=== PATIENT | male | born 1995 | race African-American/Black ===

== ENCOUNTER 2017-10-13 13:32 | Outpatient (CLI) ==
[2015-01-07 22:02] VITALS: BMI 31.8
== END 2017-10-13 13:33 | disposition home or self-care (01) ==
LOC: LAB 13:32
PROVIDERS: ATTEND Nurse Practitioner Family
DX: R80.9 Proteinuria, unspecified (principal); R30.9 Painful micturition, unspecified; R31.9 Hematuria, unspecified
CPT/HCPCS: 81001

== ENCOUNTER 2018-03-18 09:35 | Emergency (ER) ==
[2018-03-18 09:45] VITALS: BP 115/72; TEMP 96.8; BMI 28.5
[2018-03-18] MEDS ORDERED: TORADOL IVP STA (10:07)
[2018-03-18] MEDS ORDERED: LACTATED RINGERS 1,000 ML IV STA (10:07)
--- NOTE | 2018-03-18 10:11 | ED.PDOC ---
General ED Provider: Dr. CONI GUTIERREZ Chief Complaint: Nausea/Vomiting Stated Complaint: Patient states that he has not been drinking much. Now has a severe right frontal headache. Had similar symtoms when he was a teenager and had to have some fluids. Time Seen by Physician: 10:06 Mode of Arrival: Walk-In Information Source: Patient Exam Limitations: No limitations [facility] Nursing and Triage Documentation Reviewed and Agree: Yes Does patient meet sepsis criteria?: No System Inflammatory Response Syndrome: Not Applicable Sepsis Protocol: For patient's 13 years and over: Temp is 96.8 and below OR 101 and greater Pulse >90 BPM Resp >20/minute Acutely Altered Mental Status Are patient's symptoms suggestive of a new infection, such as: -Pneumonia -Skin, Soft Tissue -Endocarditis -UTI -Bone, Joint Infection -Implantable Device -Acute Abdominal Infection -Wound Infection -Meningitis -Blood Stream Catheter Infection -Unknown Neurological Complaint Exam - Headache Complaint/Exam Onset: Gradual Duration: 1 day Symptoms Are: Still present Timing: Constant Worst Headache Ever: No Initial Severity: Moderate Current Severity: Severe Location: Right, Frontal Character: Reports: Dull, Throbbing Aggravating: Denies: Position change, Bright lights Alleviating: Reports: None Associated Signs and Symptoms: Reports: Nausea. Denies: Dizziness, Seizure, Vomiting, Sinus pressure, Fever, Neck pain, Neck stiffness, Decreased LOC, Visual changes Related History: Reports: Similar episode (when he was a teenager ) Related Surgical History: Reports: None SAH Risk Factors: Reports: None Meningitis Risk Factors: Reports: None SDH Risk Factors: Reports: None Temporal Arteritis Risk Factors: Reports: None Normal Head CT Within Last 12 Months: No Fundoscopic Exam: Present: Normal Findings Papilledema Present: No Temporal Artery Tenderness: Present: None Sinus Tenderness: Present: None TMJ Tenderness: Present: None Glascow Coma Scale (see protocol): 15 Meningeal Signs Positive: No Pain on Passive Flexion-Positive Kernig's: No ROM Limited In: No Limitiations Focal Weakness: Present: None Focal Sensory Loss: Present: None Gait: Normal Nystagmus Present: No [id number]: Normal Findings Babinski Sign: Negative Right, Negative Left Head Picture: 1 - Area of pain Differential Diagnoses: Migraine, Tension Headache Review of Systems - Review Of Systems Constitutional: Reports: No symptoms Eyes: Reports: No symptoms Ears, Nose, Mouth, Throat: Reports: No symptoms Respiratory: Reports: No symptoms Cardiac: Reports: No symptoms GI: Reports: Nausea, Poor appetite : Reports: No symptoms Musculoskeletal: Reports: No symptoms Skin: Reports: No symptoms Neurological: Reports: Headache Endocrine: Reports: No symptoms Hematologic/Lymphatic: Reports: No symptoms All Other Systems: Reviewed and Negative Past Medical History - Past Medical History Previously Healthy: Yes Endocrine: Reports: None Cardiovascular: Reports: None Respiratory: Reports: Asthma Hematological: Reports: None Gastrointestinal: Reports: None Genitourinary: Reports: None Neuro/Psych: Reports: None Musculoskeletal: Reports: None Cancer: Reports: None - Surgical History General Surgical History: Reports: Orthopedic (ACL LEFT JUN 2014) - Family History Family History: Reports: None - Social History Smoking Status: Never smoker Hx Substance Use: No Alcohol Screening: None Physical Exam - Physical Exam Appearance: Ill-appearing Ill-appearing: Mild Pain Distress: Moderate Eyes: HILARIA, EOMI, Conjunctiva clear ENT: Ears normal, Nose normal, Oropharynx normal Neck: Supple Respiratory: Airway patent, Breath sounds clear, Breath sounds equal, Respirations nonlabored Cardiovascular: RRR, Pulses normal, No rub, No murmur GI/: Soft, Nontender, No masses, Bowel sounds normal, No Organomegaly Musculoskeletal: Normal strength, ROM intact, No edema, No calf tenderness Skin: Warm, Dry, Normal color Neurological: Sensation intact, Motor intact, Reflexes intact, Cranial nerves intact, Alert, Oriented Psychiatric: Affect appropriate, Mood appropriate Interpretation - Radiology Interpretation Radiology Interpretation By: Radiologist Radiology Results: Positive (mucoperiosteal Thickening in the left maxillary sinus.) Exam Interpreted: CT Scan (head ) Critical Care Note - Critical Care Note Total Time (mins): 0 Course - Course Hematology/Chemistry: 03/18/18 10:20 03/18/18 10:20 Orders, Labs, Meds: Lab Review 03/18/18 03/18/18 10:20 10:20 WBC 3.83 L RBC 5.36 Hgb 14.2 Hct 43.7 MCV 81.5 MCH 26.5 L MCHC 32.5 RDW Coeff of Arsenio 13.2 Plt Count 183 Immature Gran % (Auto) 0.3 Neut % (Auto) 38.4 Lymph % (Auto) 49.6 Wake % (Auto) 7.8 Eos % (Auto) 3.4 Baso % (Auto) 0.5 Immature Gran # (Auto) 0.0 Neut # (Auto) 1.5 L Lymph # (Auto) 1.9 Wake # (Auto) 0.3 L Eos # (Auto) 0.1 Baso # (Auto) 0.0 Sodium 140 Potassium 3.9 Chloride 104 Carbon Dioxide 27 Anion Gap 12.9 BUN 6 L Creatinine 1.12 H Estimated GFR (MDRD) 100.00 BUN/Creatinine Ratio 5.35 Glucose 92 Calcium 9.4 Total Bilirubin 0.3 AST 36 ALT 68 Alkaline Phosphatase 65 Total Protein 7.4 Albumin 3.7 Globulin 3.7 Albumin/Globulin Ratio 1.00 Orders Category Date Time Status ED IV/MEDIPORT/POWERPORT .ONCE EMERGENCY 03/18/18 10:07 Active CBC W/ AUTO DIFF Stat LAB 03/18/18 10:20 Completed COMPREHENSIVE METABOLIC PANEL Stat LAB 03/18/18 10:20 Completed 0.9 % Sodium Chloride [Saline Flush] MEDS 03/18/18 10:07 Discontinued 1 syr IVF PRN PRN Ketorolac Tromethamine [Toradol] MEDS 03/18/18 10:07 Discontinued 30 mg IVP ONCE STA Ondansetron HCl/Pf [Zofran 4 mg/2 ml] MEDS 03/18/18 10:12 Discontinued 4 mg IVP ONCE STA Ringers Lactated Solution [Lactated Ringers] 1,000 ml MEDS 03/18/18 10:[address] HEAD W/O CONTRAST Stat RADS 03/18/18 10:13 Completed Medications Discontinued Medications Generic Name Dose Route Start Last Admin Trade Name Freq PRN Reason Stop Dose Admin Lactated Ringer's 1,000 mls @ 1,000 mls/hr 03/18/18 10:07 03/18/18 10:40 Lactated Ringers IV 03/18/18 11:06 1,000 mls/hr BOLUS STA Administration Ketorolac Tromethamine 30 mg 03/18/18 10:07 03/18/18 10:52 Toradol IVP 03/18/18 10:08 30 mg ONCE STA Administration Ondansetron HCl 4 mg 03/18/18 10:12 03/18/18 10:52 Zofran 4 Mg/2 Ml IVP 03/18/18 10:13 4 mg ONCE STA Administration Sodium Chloride 1 syr 03/18/18 10:07 Saline Flush IVF PRN PRN To flush IV Vital Signs: Temp Pulse Resp BP Pulse Ox 03/18/18 09:36 96.8 F L 61 18 115/72 98 Departure - Departure Time of Disposition: 11:00 Disposition: HOME SELF-CARE Discharge Problem: Frontal headache Sinusitis, acute Qualifiers: Sinusitis location: maxillary Recurrence: non-recurrent Qualified Code(s): J01.00 - Acute maxillary sinusitis, unspecified Instructions: Sinusitis (ED), Acute Headache (ED) Condition: Stable Pt referred to PMD for follow-up: Yes IPMP verified?: No Additional Instructions: Take medications as prescribed Follow up with PCP in 3 days Push fluids Prescriptions: Amoxicillin/Potassium Clav [Augmentin 875-125 mg Tab] 1 tab PO Q12HR #20 tablet Prednisone 20 mg PO DAILYWM #5 tablet Allergies/Adverse Reactions: Allergies azithromycin [From Zithromax] Adverse Reaction (Verified 03/18/18 09:41) RASH/ITCHING Home Medications: Ambulatory Orders Amoxicillin/Potassium Clav [Augmentin 875-125 mg Tab] 1 tab PO Q12HR #20 tablet 03/18/18 Prednisone 20 mg PO DAILYWM #5 tablet 03/18/18 Disposition Discussed With: Patient
[2018-03-18] MEDS ORDERED: ZOFRAN 4 MG/2 ML IVP STA (10:12)
--- NOTE | 2018-03-18 10:36 | CT ---
Exam: Head CT. Date: 03/18/2018. Comparison: 04/18/2013. HISTORY: Headache. TECHNIQUE: Helical scan of the brain was performed. FINDINGS: The calvarium is intact. There is fluid mucoperiosteal thickening in the left maxillary si nus, but it is incompletely visualized. The remaining paranasal sinuses and mastoid air cells appear clear. The brainstem and cerebellum are within normal limits. No abnormal intra or extra-axial fluid, mass or mass effect is present. There is no midline shift or hydrocephalus. No large vessel infarct or h emorrhages identified. The bolton-white interface is maintained. Impression: No acute intracranial findings. However there is opacification of the left maxillary si nus, but the sinus is incompletely visualized. Findings could represent chronic or acute sinusitis. If further evaluation of the left maxillary sinus is needed then a dedicated CT scan of the maxillofa cial region could be performed.
== END 2018-03-18 11:40 | disposition home or self-care (01) ==
LOC: ED 09:35
DX: J01.00 Acute maxillary sinusitis, unspecified (principal); R51 Headache
CPT/HCPCS: 36415; 80053; 85025; 96361; 96374; 96375; 99283